=== PATIENT | male | born 1995 | race Hispanic/Latino ===

== ENCOUNTER 2019-06-14 23:16 | Emergency (ER) | payer BC ==
[2019-06-14] MEDS ORDERED: Ibuprofen 200 MG TAB ONE ×2 (23:43→23:45)
== END 2019-06-15 00:12 | disposition home or self-care (01) ==
LOC: ERS 23:16
DX: H60.91 Unspecified otitis externa, right ear (principal)
CPT/HCPCS: 99282

== ENCOUNTER 2021-05-27 04:40 | Emergency (ER) | payer BC | END 2021-05-27 05:52 | disposition home or self-care (01) | LOC: ERS 04:40 | DX: R07.9 Chest pain, unspecified (principal); R06.00 Dyspnea, unspecified | CPT/HCPCS: 71045; 93005 ==